=== PATIENT | male | born 1990 | race Caucasian/White ===

== ENCOUNTER 2020-12-07 13:36 | Emergency (ER) | payer OTHER ==
[~2020-12-07] VITALS: Ht 170.2 cm; Wt 72.1 kg
[2020-12-07 14:13] LABS: BASO % 0.2 % (0.0-1.0); EOS # 0.2 10^3/uL (0.0-0.5); EOS % 2.3 % (0.0-3.0); HEMATOCRIT 43.3 % (42.0-52.0); HEMOGLOBIN 14.9 g/dl (13.5-17.5); LYMPH # 1.7 10^3/uL (1.5-5.0); LYMPH % 18.3 % (24.0-44.0); MEAN CORPUSCULAR HEMOGLOBIN 30.1 pg (27.0-33.0); MEAN CORPUSCULAR HGB CONC 34.4 g/dl (32.0-36.5); MEAN CORPUSCULAR VOLUME 87.5 fl (80.0-96.0); MONO # 0.4 10^3/uL (0.0-0.8); MONO % 4.6 % (0.0-5.0); NEUTROPHILS % 74.3 % (36.0-66.0); PLATELET COUNT, AUTOMATED 263 10^3/uL (150-450); RED BLOOD COUNT 4.95 10^6/uL (4.30-6.10); WHITE BLOOD COUNT 9.4 10^3/uL (4.0-10.0)
[2020-12-07] MEDS ORDERED: ISOVUE-370 76% 100ML VIAL As Ordered ONE (14:38)
[2020-12-07 14:42] LABS: ALBUMIN 4.3 GM/DL (3.2-5.2); BILIRUBIN,DIRECT 0.2 MG/DL (0.0-0.2); BILIRUBIN,TOTAL 0.9 MG/DL (0.2-1.0); TOTAL PROTEIN 7.4 GM/DL (6.4-8.2)
[2020-12-07] MEDS ORDERED: ONDANSETRON 4MG/2ML VIAL IV ONE (14:45)
[2020-12-07] MEDS ORDERED: NS 1,000 ML IV ONE (14:45)
[2020-12-07] MEDS ORDERED: fentaNYL 100 MCG/2 ML INJECTION (J3010) IV ONE (14:45)
[2020-12-07] MEDS: GASTROGRAFIN SOLUTION 30ML PO SCH ×2 (15:24→15:40)
--- NOTE | 2020-12-07 16:51 | REP ---
INDICATION: RLQ PAIN SINCE YESTERDAY. COMPARISON: None. TECHNIQUE: Helical scanning was acquired and 4 mm axial images are re-formatted. Coronal and sagittal MPR images were generated and reviewed. The contrast enhancement dose is 100 mL of intravenous Isovue 370. oral contrast was also administered. FINDINGS: Preliminary digital newsroom intern radiograph demonstrates an unremarkable bowel gas pattern. The lung bases are clear on axial CT images. There is no evidence of pleural effusion or upper abdominal ascites. The liver and the spleen are normal in size homogeneous in texture. Normal adrenal glands are seen. The kidneys enhance symmetrically and are morphologically intact. No abnormality is noted in the gallbladder or pancreas. No retroperitoneal mass or adenopathy is seen. A normal appendix is seen in the right lower quadrant along the anterior edge of the psoas muscle. There is no evidence of appendiceal dilation or Ayla appendiceal inflammation. Small and large bowel loops are unremarkable in the abdomen and pelvis. Urinary bladder is intact. Prostate and seminal vesicles are unremarkable. No abdominal wall defect is seen. Bone window settings show no evidence of acute bony abnormality. IMPRESSION: Negative CT study abdomen and pelvis. Normal appendix seen. No acute abdominal or pelvic abnormality. <Electronically signed by Tommy Hunter > 12/07/20 [id number]
[2020-12-07 17:46] VITALS: BP 122/62
== END 2020-12-07 17:49 | disposition home or self-care (01) ==
LOC: M ED 13:36
DX: R10.31 Right lower quadrant pain (principal)
CPT/HCPCS: 74177; 80047; 80076; 81001; 83690; 85025; 96361; 96374; 96375; 99284; J2405; J3010; Q9963; Q9967